=== PATIENT | female | born 1945 | race African-American/Black ===

== ENCOUNTER 2017-07-03 11:14 | Emergency (ER) | payer MEDICARE ==
[~2017-07-03] VITALS: Ht 157.5 cm; Wt 152.0 kg
[~2017-07-03 11:14] MED LIST: ALPR0.5T99 PO; ATEN1TAB55 PO; CIPR500T4 PO; DOCU1CAP39 PO; LASI20TA PO; LISI-587 PO; METR-1 PO; PERC5TAB12 PO; SENO8.6T6 PO; ST JTAB PO; VITA400T14 PO
[2017-07-03 11:19] VITALS: BP 148/72; PULSE 90; RESP 16; TEMP 98.3; O2SAT 95
[2017-07-03] MEDS ORDERED: FURO20TA PO (11:36)
[2017-07-03] MEDS ORDERED: ATEN25TA PO (11:36)
[2017-07-03] MEDS ORDERED: ESCI10TA PO (11:36)
[2017-07-03] MEDS ORDERED: LISI20TA3 PO (11:36)
[2017-07-03] MEDS ORDERED: ALPR0.5T3 PO (11:36)
[2017-07-03] MEDS ORDERED: RANI150T PO (11:36)
--- NOTE | 2017-07-03 12:11 | PD ---
HPI Chief Complaint: Edema Time Seen by Provider: 12:08 Travel History International Travel<30 days: No Contact w/Intl Traveler<30days: No Traveled to known affect area: No History of Present Illness HPI 72-year-old female patient with history of hypertension, sciatica, presents to the ER today because she states that she had gone to visit her daughter in [place] and had taken a 24 [address] ride back down, has had increased pain in her left lower back area radiating down the leg, and has had bilateral leg swelling especially in the left leg, and more discomfort in the left leg, and is concerned because she feels like there is paresthesias down the legs. She denies any chest pains, shortness of breath, or other symptoms. She does not report any incontinence, fevers, or other symptoms. Modifying Factors: None Associated Signs & Symptoms: Pain in the lower back with radiation down the left leg, bilateral leg numbness worse on the left Risk Factors: History of sciatica, history of chronic leg swelling, recent long train ride PFSH Past Medical History Hx Anticoagulant Therapy: Yes (asa 81mg) Anxiety: Yes Depression: Yes Cardiovascular Problems: Yes (htn on meds) High Cholesterol: Yes Diminished Hearing: No Diverticulitis: Yes GERD: Yes Hypertension: Yes Respiratory: Yes (asthma) Immunizations Current: No ?: Not Menopausal: Yes Past Surgical History Appendectomy: Yes Hysterectomy: Yes Social History Alcohol Use: No Tobacco Use: No Substance Use: No Allergies-Medications (Allergen,Severity, Reaction): Coded Allergies: enalaprilat (Unverified Allergy, Mild, HIVES, 07/03/17) house dust (Unverified Allergy, Mild, 07/03/17) hylan G-F 20 (Unverified Allergy, Mild, 07/03/17) phenazopyridine (Verified Allergy, Unknown, 07/03/17) Reported Meds & Prescriptions Reported Meds & Active Scripts Active Reported Furosemide 20 Mg Tab 20 Mg PO DAILY Atenolol 25 Mg Tab 25 Mg PO DAILY Alprazolam 0.5 Mg Tab 0.5 Mg PO TID PRN Ranitidine (Ranitidine HCl) 150 Mg Tab 150 Mg PO BID Lisinopril-Hctz 20-25 Mg Tab 1 Tab PO DAILY Escitalopram (Escitalopram Oxalate) 10 Mg Tab 10 Mg PO DAILY Review of Systems Except as stated in HPI: all other systems reviewed are Neg Physical Exam Narrative GENERAL: Well-developed elderly obese female patient currently in mild distress. Awake and oriented 3. SKIN: Focused skin assessment warm/dry. HEAD: Atraumatic. Normocephalic. EYES: Pupils equal and round. No scleral icterus. No injection or drainage. ENT: No nasal bleeding or discharge. Mucous membranes pink and moist. NECK: Trachea midline. No JVD. CARDIOVASCULAR: Regular rate and rhythm. No murmur appreciated. RESPIRATORY: No accessory muscle use. Clear to auscultation. Breath sounds equal bilaterally. GASTROINTESTINAL: Abdomen soft, non-tender, nondistended. Hepatic and splenic margins not palpable. MUSCULOSKELETAL: No obvious deformities. No clubbing. No cyanosis. Bilateral + 3 pitting edema of the legs. NEUROLOGICAL: Awake and alert. No obvious cranial nerve deficits. Motor grossly within normal limits. Normal speech. PSYCHIATRIC: Appropriate mood and affect; insight and judgment normal. Data Data Last Documented VS Vital Signs Date Time Temp Pulse Resp B/P (MAP) Pulse Ox O2 Delivery O2 Flow Rate FiO2 07/03/17 11:19 98.3 90 16 148/72 (97) 95 Orders Orders Electrocardiogram (07/03/17 12:08) Complete Blood Count With Diff (07/03/17 12:08) Comprehensive Metabolic Panel (07/03/17 12:08) Prothrombin Time / Inr (Pt) (07/03/17 12:08) Act Partial Throm Time (Ptt) (07/03/17 12:08) Us Leg Venous Doppler Bilat (07/03/17 12:08) Ed Discharge Order (07/03/17 13:43) Labs Laboratory Tests Test 07/03/17 12:15 White Blood Count 9.1 TH/MM3 Red Blood Count 3.95 MIL/MM3 Hemoglobin 9.8 GM/DL Hematocrit 31.0 % Mean Corpuscular Volume 78.5 FL Mean Corpuscular Hemoglobin 24.9 PG Mean Corpuscular Hemoglobin Concent 31.8 % Red Cell Distribution Width 16.3 % Platelet Count 344 TH/MM3 Mean Platelet Volume 7.7 FL Neutrophils (%) (Auto) 69.1 % Lymphocytes (%) (Auto) 21.4 % Monocytes (%) (Auto) 5.4 % Eosinophils (%) (Auto) 3.7 % Basophils (%) (Auto) 0.4 % Neutrophils # (Auto) 6.4 TH/MM3 Lymphocytes # (Auto) 1.9 TH/MM3 Monocytes # (Auto) 0.5 TH/MM3 Eosinophils # (Auto) 0.3 TH/MM3 Basophils # (Auto) 0.0 TH/MM3 CBC Comment AUTO DIFF Differential Comment AUTO DIFF CONFIRMED Prothrombin Time 10.7 SEC Prothromb Time International Ratio 1.1 RATIO Activated Partial Thromboplast Time 28.2 SEC Blood Urea Nitrogen 16 MG/DL Creatinine 1.30 MG/DL Random Glucose 142 MG/DL Total Protein 8.7 GM/DL Albumin 2.8 GM/DL Calcium Level 8.7 MG/DL Alkaline Phosphatase 80 U/L Aspartate Amino Transf (AST/SGOT) 16 U/L Alanine Aminotransferase (ALT/SGPT) 11 U/L Total Bilirubin 0.4 MG/DL Sodium Level 140 MEQ/L Potassium Level 3.2 MEQ/L Chloride Level 102 MEQ/L Carbon Dioxide Level 30.2 MEQ/L Anion Gap 8 MEQ/L Estimat Glomerular Filtration Rate 48 ML/MIN MDM Medical Decision Making Medical Screen Exam Complete: Yes Emergency Medical Condition: Yes Medical Record Reviewed: Yes Interpretation(s) EKG shows NSR, no ST elevation or depression, and no arrhythmias. No significant T-wave inversions. Laboratory Tests Test 07/03/17 12:15 Red Blood Count 3.95 MIL/MM3 (4.00-5.30) Hemoglobin 9.8 GM/DL (11.6-15.3) Hematocrit 31.0 % (35.0-46.0) Mean Corpuscular Volume 78.5 FL (80.0-100.0) Mean Corpuscular Hemoglobin 24.9 PG (27.0-34.0) Mean Corpuscular Hemoglobin Concent 31.8 % (32.0-36.0) Creatinine 1.30 MG/DL (0.50-1.00) Random Glucose 142 MG/DL (74-106) Total Protein 8.7 GM/DL (6.4-8.2) Albumin 2.8 GM/DL (3.4-5.0) Potassium Level 3.2 MEQ/L (3.5-5.1) Estimat Glomerular Filtration Rate 48 ML/MIN (>89) Last 24 hours Impressions Lower Extremity Ultrasound 07/03/17 1208 Signed Impressions: Service Date/Time: Monday, July 03, 2017 12:49 - CONCLUSION: Normal examination. Jose Mayer MD Differential Diagnosis Dependent edema versus DVT Narrative Course Ultrasound shows no signs of DVT. Considering her history, this is most likely secondary to dependent edema from sitting on the train for 24 hours. At this point, my plan would be to release the patient. She has medications already for pain and has diuretics. She should continue with these diuretics. She should keep her legs up, follow-up with primary care doctor. Return for worsening in symptoms as necessary. The plan has been discussed with her and she states understanding. Diagnosis Primary Impression: Leg edema Med/Other Pt SpecificInfo: Prescription(s) given Scripts Tramadol (Tramadol) 50 Mg Tab 50 MG PO Q6H Y for PAIN, #12 TAB 0 Refills Prov: Emily Rodriguez MD 07/03/17 Disposition: 01 DISCHARGE HOME Condition: Stable Emily Rodriguez MD July 03, 2017 12:11
[2017-07-03 12:25] LABS: AUTOMATED NEUTROPHIL # 6.4 TH/MM3 (1.8-7.7); BASOPHIL % 0.4 % (0.0-2.0); EOSINOPHIL # 0.3 TH/MM3 (0-0.4); EOSINOPHIL % 3.7 % (0.0-4.0); HEMOGLOBIN 9.8 GM/DL (11.6-15.3); LYMPH % 21.4 % (9.0-44.0); LYMPHOCYTE # 1.9 TH/MM3 (1.0-4.8); MEAN CELL VOLUME 78.5 FL (80.0-100.0); MEAN CORPUSCULAR HEMOGLOBIN 24.9 PG (27.0-34.0); MEAN CORPUSCULAR HGB CONC 31.8 % (32.0-36.0); MEAN PLATELET VOLUME 7.7 FL (7.0-11.0); MONO % 5.4 % (0.0-8.0); MONOCYTE # 0.5 TH/MM3 (0-0.9); NEUT % 69.1 % (16.0-70.0); PLATELET COUNT 344 TH/MM3 (150-450); RED BLOOD COUNT 3.95 MIL/MM3 (4.00-5.30); RED CELL DISTRIBUTION WIDTH 16.3 % (11.6-17.2); WHITE BLOOD COUNT 9.1 TH/MM3 (4.0-11.0)
[2017-07-03 13:20] LABS: CHLORIDE 102 MEQ/L (98-107); SODIUM (NA) 140 MEQ/L (136-145)
--- NOTE | 2017-07-03 13:20 | RADRPT ---
EXAM DATE/TIME: 07/03/2017 12:49 [facility] COMPARISON: No previous studies available for comparison. INDICATIONS : Bilateral leg swelling. MEDICAL HISTORY : Hypertension. Hypercholesterolemia. Diverticulitis. Asthma. GERD. Depression. Anxiety. Anticoagulant therapy, Aspirin 81mg. SURGICAL HISTORY : Appendectomy.Hysterectomy. ENCOUNTER: Initial ACUITY: 2 months PAIN SCORE: 0/10 LOCATION: Left leg. TECHNIQUE: Venous ultrasound of the left and right leg was performed from the inguinal ligament to the proximal calf. Real-time, color Doppler and spectral tracing, compression and augmentation techniques were us ed. FINDINGS: RIGHT LEG: There is normal compressibility of the deep venous system from the inguinal region to the proximal ca lf. No echogenic clot is seen in the lumen of the common femoral, femoral, popliteal, and posterior tibial veins. There is a normal response of the venous system to proximal and distal augmentation an d respiration. LEFT LEG: There is normal compressibility of the deep venous system from the inguinal region to the proximal ca lf. No echogenic clot is seen in the lumen of the common femoral, femoral, popliteal, and posterior tibial veins. There is a normal response of the venous system to proximal and distal augmentation an d respiration. CONCLUSION: Normal examination. Jose Mayer MD on July 03, 2017 at 13:18 Board Certified Radiologist. This report was verified electronically.
[2017-07-03 13:24] LABS: CALCIUM 8.7 MG/DL (8.5-10.1)
[2017-07-03 13:25] LABS: ALBUMIN 2.8 GM/DL (3.4-5.0); BICARBONATE 30.2 MEQ/L (21.0-32.0); BLOOD UREA NITROGEN 16 MG/DL (7-18); GLUCOSE,RANDOM 142 MG/DL (74-106); INTERNATIONAL NORMALIZED RATIO 1.1 RATIO; PROTHROMBIN TIME - PATIENT 10.7 SEC (9.8-11.6)
[2017-07-03 13:28] LABS: ALT (GPT) 11 U/L (10-53); AST (GOT) 16 U/L (15-37); GLOMERULAR FILTRATION RATE 48 ML/MIN (>89)
[2017-07-03 13:30] LABS: TOTAL BILIRUBIN ADULT 0.4 MG/DL (0.2-1.0); TOTAL PROTEIN 8.7 GM/DL (6.4-8.2)
[2017-07-03 13:31] LABS: ALKALINE PHOSPHATASE 80 U/L (45-117)
[2017-07-03] MEDS ORDERED: TRAM50TA PO (13:46)
--- NOTE | 2017-07-04 19:58 | EKG ---
Date Performed: 07/03/2017 Time Performed: 12:23:21 PTAGE: 72 years EKG: Sinus rhythm INFERIOR MYOCARDIAL INFARCTION ABNORMAL ECG Since the PREVIOUS TRACING , no significant change noted PREVIOUS TRACIN09/03/2002 19.02 DOCTOR: Lio Singh Interpretating Date/Time 07/04/2017 19:57:33
== END 2017-07-03 14:01 | disposition home or self-care (01) ==
LOC: PHED 11:14
DX: R60.0 Localized edema (principal); M54.5 Low back pain; I10 Essential (primary) hypertension; I25.2 Old myocardial infarction; R94.31 Abnormal electrocardiogram [ECG] [EKG]; J45.909 Unspecified asthma, uncomplicated; E78.00 Pure hypercholesterolemia, unspecified; K21.9 Gastro-esophageal reflux disease without esophagitis; F41.9 Anxiety disorder, unspecified
CPT/HCPCS: 80053; 85025; 85610; 85730; 93005; 93970